=== PATIENT | female | born 2000 | race Caucasian/White ===

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

== ENCOUNTER 2022-06-02 21:34 | Emergency (ER) | payer OTHER ==
[2022-06-02 21:40] VITALS: BP 167/109; PULSE 120; RESP 20; TEMP 98.4
[2022-06-02] MEDS ORDERED: diphenhydrAMINE 50 MG CAP PO STA (22:04)
[2022-06-02] MEDS ORDERED: ACETAMINOPHEN TAB 500 MG TAB PO STA (22:04)
--- NOTE | 2022-06-02 22:04 | ED ---
Back Pain HPI - General Chief Complaint: Back Pain/Injury Stated Complaint: [facility]-Back injury Time Seen by Provider: 06/02/22 22:01 Source: patient, RN notes reviewed, old records reviewed Limitations: no limitations - History of Present Illness Initial Comments: This is a 22-year-old female employee injury to her back while doing lifting at work today. Patient has pain in her lower back paraspinal in the buttocks. No loss of bowel or bladder no other injury noted. Patient is 18 weeks MD Complaint: back pain, back injury -: hour(s) Similar Symptoms Previously: No Place: work Radiation: none Severity: moderate Severity scale (1-10): 5 Quality: aching, tingling Consistency: constant Improves With: none Worsens With: movement Context: while lifting, turning/twisting Associated Symptoms: denies other symptoms Treatments Prior to Arrival: other (0) - Related Data Allergies Allergy/AdvReac Type Severity Reaction Status Date / Time metoclopramide [From Reglan] Allergy Hallucinati Verified 03/29/17 15:28 ons Review of Systems ROS Statement: Those systems with pertinent positive or pertinent negative responses have been documented in the HPI. ROS Other: All systems not noted in ROS Statement are negative. 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 Absent: scleral icterus, conjunctival injection, periorbital swelling ENT exam: Present: normal exam, mucous membranes moist Neck exam: Present: normal inspection. Absent: tenderness, meningismus, lymphadenopathy Respiratory exam: Present: normal lung sounds bilaterally. Absent: respiratory distress, wheezes, rales, rhonchi, stridor Cardiovascular Exam: Present: regular rate, normal rhythm, normal heart sounds. Absent: systolic murmur, diastolic murmur, rubs, gallop, clicks GI/Abdominal exam: Present: soft, normal bowel sounds. Absent: distended, tenderness, guarding, rebound, rigid Extremities exam: Present: normal inspection, full ROM, normal capillary refill. Absent: tenderness, pedal edema, joint swelling, calf tenderness Back exam: Present: normal inspection Neurological exam: Present: alert, oriented X3, CN II-XII intact Psychiatric exam: Present: normal affect, normal mood Skin exam: Present: warm, dry, intact, normal color. Absent: rash Course Vital Signs 06/02/22 21:37 Temperature 98.4 F Pulse Rate 120 H Respiratory 20 Rate Blood Pressure 167/109 O2 Sat by Pulse 99 Oximetry - Reevaluation(s) Reevaluation #1: 06/02/22 23:49 Medical record is reviewed Reevaluation #2: 06/02/22 23:49 Patient symptoms are improved Reevaluation #3: 06/02/22 23:49 Patient is declining x-ray imaging at this time Reevaluation #4: 06/02/22 23:49 Patient informed results questions have been answered Medical Decision Making - Medical Decision Making 22 female to the emergency department with back pain, back pain during pulling injury, patient given days off work, will return to work when injury pains, patient is 18 weeks - Lab Data Lab Results 06/02/22 Range/Units 22:22 Urine Color Yellow Urine Appearance Cloudy H (Clear) Urine pH 6.0 (5.0-8.0) Ur Specific [place] 1.022 (1.001-1.035) Urine Protein Trace H (Negative) Urine Glucose (UA) Negative (Negative) Urine Ketones Negative (Negative) Urine Blood Negative (Negative) Urine Nitrite Negative (Negative) Urine Bilirubin Negative (Negative) Urine Urobilinogen <2.0 (<2.0) mg/dL Ur Leukocyte Esterase Small H (Negative) Urine RBC <1 (0-5) /hpf Urine WBC 3 (0-5) /hpf Ur Squamous Epith Cells 6 H (0-4) /hpf Calcium Oxalate Crystal Occasional H (None) /hpf Urine Bacteria Rare H (None) /hpf Hyaline Casts 1 (0-2) /lpf Urine Mucus Moderate H (None) /hpf Disposition Clinical Impression: Mid back pain, Mechanical back pain, Strain of lumbar region Disposition: HOME SELF-CARE Condition: Good Instructions (If sedation given, give patient instructions): Acute Low Back Pain (ED) Is patient prescribed a controlled substance at d/c from ED?: No Referrals: Yessi Maxwell MD [Primary Care Provider] - 1-2 days Time of Disposition: 23:45
[2022-06-02 23:24] LABS: Appearance,Urine Cloudy (Clear); Bacteria,Urine Rare /hpf; Bilirubin,Urine Negative (Negative); Blood,Urine Negative (Negative); Calcium Oxalate Crystals,Urine Occasional /hpf; Color,Urine Yellow; Glucose,Urine (UA) Negative (Negative); Hyaline Casts,Urine 1 /lpf (0-2); Ketones,Urine Negative (Negative); Leukocyte Esterase,Urine Small (Negative); Mucus,Urine Moderate /hpf; Nitrite,Urine Negative (Negative); Protein,Urine Trace (Negative); RBC,Urine <1 /hpf (0-5); Specific Gravity,Urine 1.022 (1.001-1.035); Squamous Epithelial Cell,Urine 6 /hpf (0-4); Urobilinogen,Urine <2.0 mg/dL (<2.0); WBC,Urine 3 /hpf (0-5)
== END 2022-06-03 00:08 | disposition home or self-care (01) ==
LOC: EC 21:34
DX: S39.012A Strain of muscle, fascia and tendon of lower back, initial encounter (principal); J45.909 Unspecified asthma, uncomplicated; Z88.8 Allergy status to other drugs, medicaments and biological substances; X58.XXXA Exposure to other specified factors, initial encounter
CPT/HCPCS: 81001; 99283